=== PATIENT | male | born 1990 | race Caucasian/White ===

== ENCOUNTER 2023-10-28 02:17 | Day surgery (SDC) | payer OTHER, SELFPAY ==
[2023-10-22 14:27] VITALS: BMI 22.3
--- NOTE | 2023-10-22 14:52 | SUR.PREOP ---
Report to the Outpatient Waiting Room, entrance under the green pavilion located off [facility], at time 0730 on date 10/28/2023. Planned Procedure Time: 0930. Time changes happen often and if your time is changed the preop area will call you the afternoon before. - You and your visitor will be asked to self-screen and do not enter if you have any COVID symptoms. - A mask is optional within the hospital at this time. Patients may have clear liquids (water, carbonated beverages, clear teas, apple juice) until 3 hours prior to surgery with a maximum of 20 ounces. - No food from midnight until time of surgery - Infants may have breast milk until 4 hours before surgery, formula 6 hours prior to surgery. - Children will be allowed to drink immediately following surgery. If applicable, please bring a bottle or sippy cup to assist with drinking. Juice, water, soda, and popsicles are readily available. For infants on formula, please bring formula the day of surgery. Pacifiers are allowed. Take the following medications with a SIP of water the morning of surgery: Propranolol, Cymbalta, Wellbutrin, Tramadol as needed for pain. DO NOT STOP ANY OF YOUR OTHER PRESCRIPTION MEDICATIONS PRIOR TO SURGERY ?EXCEPT THE FOLLOWING Medications to discontinue per physician: Vitamins- 3 days Date to take last dose: 10/25/2023 Please no make-up, nail portuguese, hairspray, perfume, deodorant, or body powder the day of surgery. No jewelry (including any body piercings) or valuables the day of surgery, leave them at home. Please take a shower or bath the night before, or the morning of, surgery with an antibacterial soap. Wear comfortable, loose fitting clothing. Children are encouraged to wear pajamas. - Jewelry must be removed prior to entering the operating room. Rings and piercings that are not removed may be cut off. - The hospital will not accept responsibility for valuables. - Please leave all valuables, including medications, at home the day of surgery. If you are going home after surgery, a licensed driver license technician must drive you home. - NO public transportation without another adult if you receive anesthesia. - We recommend that an adult stay with you for 24 hours following discharge. - We also recommend that you do not drive, make important decision, drink alcoholic beverages, or take any drugs that were not prescribed by your health care provider for at least 24 hours after your discharge time. For Pediatric surgeries, we recommend two adults accompany the child home. Follow any additional instructions given to you from your surgeon. If you or anyone in your household have experienced Covid symptoms in the past week, please notify your surgeon or the nurse liaison at the phone number below for possible testing. Telephone instructions given to ____patient and asked if any additional questions and then verbalized understanding. Patient advised to call surgeon office or pre surgery nurse liaison [phone] if any additional questions.
[2023-10-28] VITALS (7 sets, daily range): BP systolic 102–116; BP diastolic 68–89; PULSE 76–89; RESP 10–18; TEMP 36.1–37; O2SAT 97–100; BMI 23.2
--- NOTE | 2023-10-28 07:21 | WPDHPUPDATE1 ---
History and Physical Update Update Date/Time: 10/28/23 07:21 History and Physical has been reviewed, including an updated exam of the patient. There are NO changes in the patient's condition. Risks, benefits, and alternatives have been discussed and questions answered. Patient agrees to proceed with procedure.
[2023-10-28] MEDS: LACTATED RINGERS 1,000 ML 30 ML IV CONT ×2 (08:00→10:30)
[2023-10-28] MEDS: ACETAMINOPHEN 500 MG TABLET 1000 MG PO (08:21)
[2023-10-28] MEDS: KETOROLAC 15 MG/ML VIAL (*BKC) IV PUSH (08:21)
--- NOTE | 2023-10-28 08:47 | WPDANESEPPF ---
Anes - Initial Pre Proc Eval Procedure: Operation Date: 10/28/23 09:30 Proposed Procedures p Left Carpal Tunnel Release - Iván Sebastian MD Date/Time: 10/28/23 08:47 Surgeon: Iván Sebastian MD Pre Op Diagnosis: left Carpal Tunnel syndrome Patient Data Age: 32 Gender: M Height: 1.63 m Weight: 61.4 kg Allergies Allergy/AdvReac Type Severity Reaction Status Date / Time No Known Allergies Allergy Verified 10/28/23 08:09 Home Medications Medication Instructions Recorded Confirmed Type bupropion HCl 300 mg 24 hr tablet, 300 mg PO QAM 10/06/23 10/28/23 History extended release (Wellbutrin XL) cetirizine 10 mg tablet (Zyrtec) 10 mg PO DAILY 10/06/23 10/22/23 History cholecalciferol (vitamin D3) 50 50 mcg PO DAILY 10/06/23 10/28/23 History mcg (2,000 unit) capsule dextroamphetamine-amphetamine 20 20 mg PO BID 10/06/23 10/22/23 History mg tablet (Adderall) duloxetine 30 mg capsule,delayed 30 mg PO DAILY 10/06/23 10/28/23 History release (Cymbalta) lamotrigine 150 mg tablet 150 mg PO DAILY 10/06/23 10/22/23 History montelukast 5 mg chewable tablet 10 mg PO DAILY 10/06/23 10/22/23 History (Singulair) multivitamin See Rx Instructions .Route .COMPLEX 10/06/23 10/28/23 History propranolol 80 mg capsule,24 80 mg PO DAILY 10/06/23 10/28/23 History hr,extended release trazodone 50 mg tablet 50 mg PO QHS 10/06/23 10/22/23 History tramadol 50 mg tablet 50 mg PO PRN PRN Pain 10/22/23 10/22/23 History Patient hx anesthesia problems: none Family hx anesthesia problems: none Results Review: All pre-operative results and documents have been reviewed as part of the pre-operative evaluation. [facility] Past Medical History Medical History (Updated 10/06/23 @ 10:40 by Iván Sebastian MD) Carpal tunnel syndrome, left Carpal tunnel syndrome, right Rheumatoid arthritis Surgical History Surgical History (Updated 10/06/23 @ 11:46 by Cristin Rivero CMA) History of dental surgery History of knee surgery meniscus Hx of tonsillectomy Family History Family History (Updated 10/06/23 @ 11:47 by Cristin Rivero CMA) Unknown Hypertension Diabetes mellitus Arthritis Social History Social History (Updated 10/06/23 @ 11:47 by Cristin Rivero CMA) Social History: caffeine use Smoking status: Never smoker Alcohol intake: current Drinks per week: 2 Substance use: never Living arrangements: with family Gender identity (if verbalized by the patient): Other Additional gender identity comments: Yobany Spiritual care concerns: No Anes - Eval Final PreProcedure Day of Procedure 10/28/23 08:47 Patient weight: normal Heart: regular rate and rhythm Lungs: clear to auscultation Airway: Mallampati scale class II Neurological: alert and oriented Last oral intake: >/= 8 hours ASA classification: II Emergent: no Anesthetic plan: proceed Anesthesia type and monitoring: general GIVS and LMA and standard monitoring Results Review: All pre-operative results and documents have been reviewed as part of the pre-operative evaluation. Informed Consent: The patient's anesthetic plan and its attendant risks and benefits were discussed with the patient/family/POA. Questions were solicited and answers provided to the satisfaction of the patient/family/POA.
[2023-10-28] MEDS: ceFAZolin 2 GM/D5W 50 ML 2 GM/50 ML BAG IVPB (09:49)
[2023-10-28] MEDS: BUPIVACAINE/EPINEPHRINE 0.5% 10 ML VIAL INFILTRATE (10:05)
--- NOTE | 2023-10-28 10:35 | P.OP_ITS ---
Procedure Note - Detailed Date of Procedure 10/28/23 Pre-op Diagnosis left Carpal Tunnel syndrome Post-op Diagnosis Same Procedure Performed Left carpal tunnel release. Surgeon Iván Sebastian MD Personal Vehicle Advisor assistant hvac mechanic Anesthesia General Indications The patient has history, exam findings, and electrodiagnostic findings consistent with carpal tunnel syndrome. Conservative treatment with bracing/ splinting, activity modifications, medication, ergonomics, injections has failed. Symptoms are daily and affect ability to use hand. The patient desires operative treatment. Findings Hypertrophic synovium flexor tendons within the carpal canal. sensory branch of the median nerve identified and preserved. Description of Procedure After informed consent was given, the operative extremity was marked in the preoperative holding area. Intravenous antibiotics were given. The patient was taken to the operating room and underwent conscious sedation by the anesthesia team. A time-out was performed confirming patient, procedure, and operative site. Local infiltrate at the carpal tunnel was done with 0.5% marcaine. Prepping and draping was done using chloraprep skin solution with usual surgical sterile technique. Anatomic landmarks marked on skin. Hand was exsanguinated and arm tourniquet inflated to 225mmHg. Incision was made with #15 blade knife in skin crease on volar palm. Hemostasis was achieved with electrocautery. Careful dissection was carried down to the transverse carpal ligament. Retractors were placed. Ligament overlying median nerve was incised in line with skin incision using tunica-biloxi blade. Proximal and distal release was done with metzenbaum scissors under direct visualization. Mosquito clamp was placed deep to ligament to protect nerve during release. The nerve was inspected and noted to be intact with mild flattening. Tendons had good excursion. The tourniquet was then released and pressure held. Bleeding points were coagulated with bipolar cautery. The wound was thoroughly irrigated with antibiotic solution. The skin was closed with 4-0 nylon interrupted suture. A sterile dressing was applied. Good capillary refill in the fingers and thumb was noted. The patient was transported to the recovery room in stable condition. All sponge, needle, instrument counts were correct at the end of the case. Estimated Blood Loss 2 Tourniquet Time Total Tourniquet Time: 10 Drains No Packing No Pathology None sent Complications None Condition Stable Disposition PACU [facility] Billing Surgery - Charge Forward: Surgery Billing ([id number])
== END 2023-10-28 12:04 | disposition home or self-care (01) ==
PROVIDERS: PCP Nurse Practitioner; Visit Provider Orthopaedic Surgery
PROC: (CPT 64721; principal; 2023-10-28 09:30)
DX: G56.02 Carpal tunnel syndrome, left upper limb (principal)
CPT/HCPCS: 64721; A9270; J0690; J1100; J1885; J2250; J2405; J2704; J3010; J7120

== ENCOUNTER 2023-12-23 03:23 | Day surgery (SDC) | payer OTHER, SELFPAY ==
[2023-12-14 08:10] VITALS: BMI 24.0
--- NOTE | 2023-12-14 08:14 | PC.NURSE ---
Addendum entered by Ramez Zuniga RN 12/14/23 08:24: Patient says he will not take Ibuprofen until after surgery. Original Note: Report to the Outpatient Waiting Room, entrance under the green pavilion located off [facility], at time _0600_ on date _[id number]_. Planned Procedure Time: _0730_.? Time changes happen often and if your time is changed the preop area will call you the afternoon before. - You and your visitor will be asked to self-screen and do not enter if you have any COVID symptoms. Please call surgeon if you need to reschedule. - A mask is optional within the hospital at this time. Patients may have clear liquids (water, carbonated beverages, clear teas, apple juice) until 3 hours prior to surgery with a maximum of 20 ounces. - No food from midnight until time of surgery and no smoking Take only the following medications with a SIP of water on the morning of surgery: ___Bupropion, Duloxetine, and Propanolol DO NOT STOP ANY OF YOUR OTHER PRESCRIPTION MEDICATIONS PRIOR TO SURGERY EXCEPT THE FOLLOWING Medications to discontinue per physician None Please no make-up, nail yi, hairspray, perfume, deodorant, or body powder the day of surgery.? No jewelry (including any body piercings) or valuables the day of surgery, leave them at home.? Please take a shower or bath the night before, or the morning of, surgery with an antibacterial soap.? Wear comfortable, loose fitting clothing.? - Jewelry must be removed prior to entering the operating room.? Rings and piercings that are not removed may be cut off. - The hospital will not accept responsibility for valuables.? - Please leave all valuables, including medications, at home the day of surgery. If you are going home after surgery, a licensed pole truck driver must drive you home.? - NO public transportation without another adult if you receive anesthesia. - We recommend that an adult stay with you for 24 hours following discharge. - We also recommend that you do not drive, make important decision, drink alcoholic beverages, or take any drugs that were not prescribed by your health care provider for at least 24 hours after your discharge time. Follow any additional instructions given to you from your surgeon. Telephone instructions given to __Ian___and asked if any additional questions and then verbalized understanding. Patient advised to call surgeon office or pre surgery nurse liaison [phone] if any additional questions.
--- NOTE | 2023-12-14 08:27 | PC.NURSE ---
Report to the Outpatient Waiting Room, entrance under the green pavilion located off [facility], at time _0600_ on date _[id number]_. Planned Procedure Time: _0730_.? Time changes happen often and if your time is changed the preop area will call you the afternoon before. - You and your visitor will be asked to self-screen and do not enter if you have any COVID symptoms. Please call surgeon if you need to reschedule. - A mask is optional within the hospital at this time. Patients may have clear liquids (water, carbonated beverages, clear teas, apple juice) until 3 hours prior to surgery with a maximum of 20 ounces. - No food from midnight until time of surgery and no smoking Take only the following medications with a SIP of water on the morning of surgery: ___Bupropion, Duloxetine and Propanolol DO NOT STOP ANY OF YOUR OTHER PRESCRIPTION MEDICATIONS PRIOR TO SURGERY EXCEPT THE FOLLOWING Medications to discontinue per physician Stop vitamins 12-20-2023 and hold Ibuprofen [id number] Please no make-up, nail tajik, hairspray, perfume, deodorant, or body powder the day of surgery.? No jewelry (including any body piercings) or valuables the day of surgery, leave them at home.? Please take a shower or bath the night before, or the morning of, surgery with an antibacterial soap.? Wear comfortable, loose fitting clothing.? - Jewelry must be removed prior to entering the operating room.? Rings and piercings that are not removed may be cut off. - The hospital will not accept responsibility for valuables.? - Please leave all valuables, including medications, at home the day of surgery. If you are going home after surgery, a licensed parcel post truck driver must drive you home.? - NO public transportation without another adult if you receive anesthesia. - We recommend that an adult stay with you for 24 hours following discharge. - We also recommend that you do not drive, make important decision, drink alcoholic beverages, or take any drugs that were not prescribed by your health care provider for at least 24 hours after your discharge time. Follow any additional instructions given to you from your surgeon. Telephone instructions given to __Ian__and asked if any additional questions and then verbalized understanding. Patient advised to call surgeon office or pre surgery nurse liaison [phone] if any additional questions.
--- NOTE | 2023-12-22 14:50 | WPDANESEPPF ---
Anes - Initial Pre Proc Eval Procedure: Operation Date: 12/23/23 07:30 Proposed Procedures p Right Carpal Tunnel Release - Iván Sebastian MD Date/Time: 12/22/23 14:50 Surgeon: Iván Sebastian MD Pre Op Diagnosis: Rt Carpal Tunnel Synd Patient Data Age: 33 Gender: M Height: 1.6 m Weight: 61.4 kg Allergies Allergy/AdvReac Type Severity Reaction Status Date / Time No Known Allergies Allergy Verified 12/23/23 06:23 Home Medications Medication Instructions Recorded Confirmed Type bupropion HCl 300 mg 24 hr tablet, 300 mg PO QAM 10/06/23 12/23/23 History extended release (Wellbutrin XL) cetirizine 10 mg tablet (Zyrtec) 10 mg PO DAILY 10/06/23 12/23/23 History dextroamphetamine-amphetamine 20 20 mg PO BID 10/06/23 12/14/23 History mg tablet (Adderall) duloxetine 30 mg capsule,delayed 30 mg PO DAILY 10/06/23 12/23/23 History release (Cymbalta) lamotrigine 150 mg tablet 150 mg PO DAILY 10/06/23 12/23/23 History montelukast 5 mg chewable tablet 10 mg PO DAILY 10/06/23 12/23/23 History (Singulair) multivitamin See Rx Instructions .Route .COMPLEX 10/06/23 12/23/23 History propranolol 80 mg capsule,24 80 mg PO DAILY 10/06/23 12/23/23 History hr,extended release trazodone 50 mg tablet 50 mg PO QHS 10/06/23 12/23/23 History tramadol 50 mg tablet 50 mg PO PRN PRN Pain 10/22/23 12/14/23 History ibuprofen 800 mg tablet 800 mg PO TID PRN pain #30 tabs 10/28/23 12/23/23 Rx cholecalciferol (vitamin D3) 125 125 mcg PO DAILY 12/14/23 12/23/23 History mcg (5,000 unit) tablet (Vitamin D3) Patient hx anesthesia problems: none Family hx anesthesia problems: none Results Review: All pre-operative results and documents have been reviewed as part of the pre-operative evaluation. [facility] Past Medical History Medical History Carpal tunnel syndrome, left Carpal tunnel syndrome, right Rheumatoid arthritis Surgical History Surgical History History of dental surgery History of knee surgery meniscus Hx of tonsillectomy Family History Family History Unknown Hypertension Diabetes mellitus Arthritis Social History Social History Social History: caffeine use Smoking status: Never smoker Alcohol intake: current Drinks per week: 1 Substance use: never Living arrangements: with family Gender identity (if verbalized by the patient): Other Additional gender identity comments: Neutrak Spiritual care concerns: No Anes - Eval Final PreProcedure Day of Procedure 12/22/23 14:50 Patient weight: normal Heart: regular rate and rhythm Lungs: clear to auscultation Airway: Mallampati scale class II Neurological: alert and oriented Last oral intake: >/= 8 hours ASA classification: II Emergent: no Anesthetic plan: proceed Anesthesia type and monitoring: general LMA and standard monitoring Results Review: All pre-operative results and documents have been reviewed as part of the pre-operative evaluation. Informed Consent: The patient's anesthetic plan and its attendant risks and benefits were discussed with the patient/family/POA. Questions were solicited and answers provided to the satisfaction of the patient/family/POA.
[2023-12-23] VITALS (8 sets, daily range): BP systolic 102–118; BP diastolic 67–85; PULSE 73–97; RESP 10–16; TEMP 36.5–36.7; O2SAT 95–99
[2023-12-23] MEDS: ACETAMINOPHEN 500 MG TABLET 1000 MG PO (06:39)
[2023-12-23] MEDS: LACTATED RINGERS 1,000 ML 30 ML IV CONT (06:42)
[2023-12-23] MEDS: KETOROLAC 15 MG/ML VIAL (*BKC) IV PUSH (06:47)
--- NOTE | 2023-12-23 07:24 | WPDHPUPDATE1 ---
History and Physical Update Update Date/Time: 12/23/23 07:24 History and Physical has been reviewed, including an updated exam of the patient. There are NO changes in the patient's condition. Risks, benefits, and alternatives have been discussed and questions answered. Patient agrees to proceed with procedure.
[2023-12-23] MEDS: ceFAZolin 2 GM/D5W 50 ML 2 GM/50 ML BAG IVPB (07:30)
[2023-12-23] MEDS: BUPIVACAINE/EPINEPHRINE 0.5% 10 ML VIAL INFILTRATE (07:55)
--- NOTE | 2023-12-23 08:23 | P.OP_ITS ---
Procedure Note - Detailed Date of Procedure 12/23/23 Pre-op Diagnosis Rt Carpal Tunnel Synd Post-op Diagnosis Same Procedure Performed Right carpal tunnel release. 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 Conservative treatment with bracing/ splinting, activity modifications, medication, ergonomics, injections has failed. Symptoms are daily and affect ability to use hand. The patient desires operative treatment. Description of Procedure After informed consent was given, the operative extremity was marked in the preoperative holding area. Intravenous antibiotics were given. The patient was taken to the operating room and underwent conscious sedation by the anesthesia team. A time-out was performed confirming patient, procedure, and operative site. Local infiltrate at the carpal tunnel was done with 0.5% marcaine. Prepping and draping was done using chloraprep skin solution with usual surgical sterile technique. Anatomic landmarks marked on skin. Hand was exsanguinated and arm tourniquet inflated to 225mmHg. Incision was made with #15 blade knife in skin crease on volar palm. Hemostasis was achieved with electrocautery. Careful dissection was carried down to the transverse carpal ligament. Retractors were placed. Ligament overlying median nerve was incised in line with skin incision using bishop paiute blade. Proximal and distal release was done with metzenbaum scissors under direct visualization. Mosquito clamp was placed deep to ligament to protect nerve during release. The nerve was inspected and noted to be intact with mild flattening. there was extensive synovium noted around the tendons. This finding was also noted previously on the left side. The synovium was sharply excised and passed off as specimen. Tendons had good excursion. The tourniquet was then released and pressure held. Bleeding points were coagulated with bipolar cautery. The wound was thoroughly irrigated with antibiotic solution. The skin was closed with 4-0 nylon interrupted suture. A sterile dressing was applied. Good capillary refill in the fingers and thumb was noted. The patient was transported to the recovery room in stable condition. All sponge, needle, instrument counts were correct at the end of the case. Estimated Blood Loss 2 Tourniquet Time Total Tourniquet Time: 10 Drains No Packing No Pathology Yes (Synovium from right carpal tunnel sent to pathology for inflammatory etiology) Complications None Condition Stable Disposition PACU [facility] Billing Surgery - Charge Forward: Surgery Billing ([id number])
== END 2023-12-23 10:00 | disposition home or self-care (01) ==
PROVIDERS: PCP Nurse Practitioner; Visit Provider Orthopaedic Surgery
PROC: (CPT 64721; principal; 2023-12-23 07:30)
DX: G56.01 Carpal tunnel syndrome, right upper limb (principal); M19.031 Primary osteoarthritis, right wrist; Z79.891 Long term (current) use of opiate analgesic; Z79.1 Long term (current) use of non-steroidal anti-inflammatories (NSAID); Z98.890 Other specified postprocedural states
CPT/HCPCS: 64721; 88304; A9270; J0690; J1100; J1885; J2003; J2250; J2405; J2704; J3010; J7120